=== PATIENT | female | born 1995 | race Two or more races ===

== ENCOUNTER 2018-12-31 23:47 | Emergency (ER) | payer OTHER ==
[~2018-12-31] VITALS: Ht 160 cm; Wt 99.8 kg
[2019-01-01] MEDS ORDERED: PANADOL (00:52)
[2019-01-01] MEDS ORDERED: [UNRECOGNIZED DRUG - OTHER] (00:53)
[2019-01-01] MEDS ORDERED: MEDROLPACK PO (04:49)
== END 2019-01-01 05:00 | disposition home or self-care (01) ==
LOC: ER 23:47
DX: G51.0 Bell's palsy (principal)